=== PATIENT | female | born 1970 | race African-American/Black ===

== ENCOUNTER 2018-08-18 22:55 | Emergency (ER) | payer OTHER ==
[~2018-08-18] VITALS: Ht 167.6 cm; Wt 73.0 kg
[2018-08-18 23:43] LABS: BASOPHILS % 0.3 % (0.0-2.0); EOSINOPHILS % 2.6 % (0.0-5.0); HEMATOCRIT. 34.3 % (36.0-48.0); HEMOGLOBIN. 11.1 g/dL (12.0-16.0); LYMPHOCYTES % 24.6 % (20.0-50.0); MEAN CORPUSCULAR HEMOGLOBIN 27.3 pg (28.0-32.0); MEAN CORPUSCULAR VOLUME 84.2 fL (81.0-99.0); MEAN PLATELET VOLUME 8.8 fl (7.4-10.4); MONOCYTES % 8.3 % (2.0-8.0); NEUTROPHILS % 64.2 % (40.0-76.0); PLATELET 176 x1000/uL (130-400); RED BLOOD CELL COUNT 4.08 mill/uL (4.2-5.4); RED CELL DISTRIBUTION WIDTH 16.2 % (11.6-14.6)
[2018-08-18 23:45] LABS: CHLORIDE 104 mEq/L (98-107)
[2018-08-19 00:17] LABS: CLARITY URINE CLEAR (CLEAR); COLOR URINE YELLOW (YELLOW); KETONES URINE NEGATIVE (NEGATIVE); LEUKOCYTE ESTERASE URINE 1+ (NEGATIVE); NITRITE URINE NEGATIVE (NEGATIVE); OCCULT BLOOD URINE NEGATIVE (NEGATIVE); PH URINE 5.5 (4.5-8.0); PROTEIN URINE NEGATIVE (NEGATIVE); SPECIFIC GRAVITY URINE 1.021 (1.005-1.030)
[2018-08-19 01:41] LABS: *BARBITURATES SCREEN URINE NEGATIVE (NEGATIVE); *BENZODIAZEPINES SCREEN URINE NEGATIVE (NEGATIVE)
[2018-08-19 01:42] LABS: CANNABINOID URINE SCREEN NEGATIVE (NEGATIVE); METHADONE URINE SCREEN NEGATIVE (NEGATIVE); OPIATES URINE SCREEN NEGATIVE (NEGATIVE); PHENCYCLIDINE URINE SCREEN NEGATIVE (NEGATIVE)
[2018-08-19] MEDS ORDERED: NITROFURANTOIN 100MG M/M CAPSULE PO ONE (01:45)
[2018-08-19 01:50] LABS: *AMPHETAMINES SCREEN URINE PRESUMTIVE POSITIVE (NEGATIVE); *COCAINE SCREEN URINE PRESUMTIVE POSITIVE (NEGATIVE)
[2018-08-19 02:11] LABS: ETHANOL BLOOD < 10 mg/dL
[2018-08-19 15:16] VITALS: BP 117/68
== END 2018-08-19 15:21 | disposition home or self-care (01) ==
LOC: ER 22:55
DX: R45.851 Suicidal ideations (principal); F20.9 Schizophrenia, unspecified
CPT/HCPCS: 36415; 80305; 80307; 80320; 80329; 81025; 99284; G0480

== ENCOUNTER 2021-11-10 03:53 | Emergency (ER) | payer MEDICARE, MEDICAID ==
[~2021-11-10] VITALS: Ht 170.2 cm; Wt 110.0 kg
[2021-11-10] MEDS ORDERED: CEFTRIAXONE SODIUM 250 MG/VIAL IM ONE (06:30)
[2021-11-10] MEDS ORDERED: AZITHROMYCIN 500 MG TABLET PO ONE (06:30)
[2021-11-10 06:46] LABS: CLARITY URINE TURBID (CLEAR); COLOR URINE DARK YELLOW (YELLOW); KETONES URINE TRACE (NEGATIVE); LEUKOCYTE ESTERASE URINE 2+ (NEGATIVE); NITRITE URINE NEGATIVE (NEGATIVE); OCCULT BLOOD URINE NEGATIVE (NEGATIVE); PROTEIN URINE 1+ (NEGATIVE)
[2021-11-10] MEDS ORDERED: CEPH500C2 MT (08:20)
[2021-11-10 08:31] VITALS: BP 136/64
== END 2021-11-10 09:10 | disposition home or self-care (01) ==
LOC: ER 04:13
DX: N39.0 Urinary tract infection, site not specified (principal); D64.9 Anemia, unspecified; F32.9 Major depressive disorder, single episode, unspecified; I10 Essential (primary) hypertension; Z98.890 Other specified postprocedural states
CPT/HCPCS: 81003; 87086; 96372; 99283; J0696